=== PATIENT | male | born 1960 | race Caucasian/White ===

== ENCOUNTER 2017-10-17 15:52 | Emergency (ER) | payer OTHER ==
[~2017-10-17] VITALS: Ht 175.3 cm; Wt 84.8 kg
[2017-10-17 15:55] VITALS: BP 163/94
[2017-10-17] MEDS ORDERED: LIDOCAINE 2% 1000 MG/50 ML VIAL INJ ONE (16:05)
[2017-10-17] MEDS ORDERED: IBUPROFEN 800 MG TAB PO ONE (17:40)
[2017-10-17 18:08] VITALS: BP 145/87
== END 2017-10-17 18:09 | disposition home or self-care (01) ==
LOC: MED 15:52
DX: L02.414 Cutaneous abscess of left upper limb (principal)
CPT/HCPCS: 10060; 90471; 90715; 99283; J2001